=== PATIENT | male | born 1960 | race Caucasian/White ===

== ENCOUNTER 2020-01-20 16:48 | Emergency (ER) | payer BC, MEDICARE ==
--- NOTE | 2020-01-20 17:46 | ED.PDOC ---
History of Present Illness - General Chief Complaint: Upper Extremity Injury Stated Complaint: shoulder/neck and arm pain Time Seen by Provider: 01/20/20 17:23 Additional Information: Patient is a 59-year-old male who presents to the ED with chief complaint of bilateral shoulder pain, upper arm pain, and hand pain. Patient says his symptoms have been going on for 3 days and are slightly worse. He complains of subjective fever and chills at home. Patient has had similar symptoms in the past and told that he has rheumatoid arthritis and had been placed on steroids but is no longer on steroids. He had an episode of nausea and vomiting earlier today. Patient has a history of stroke and MT and indicates he is afraid to take any medications because of these 2 conditions. Patient is otherwise asymptomatic. - History of Present Illness Allergies/Adverse Reactions: Allergies Penicillins Adverse Reaction (Verified 01/20/20 17:07) Home Medications: Ambulatory Orders Acetaminophen W/ Codeine [Tylenol W/ CODEINE #3] 1 ea PO Q6H PRN #20 01/20/20 Ibuprofen [Motrin] 600 mg PO Q6H PRN #20 tab 01/20/20 Prednisone 40 mg PO DAILY #10 tab 01/20/20 Review of Systems - Review of Systems Constitutional: States: see HPI, chills, fever, weakness - Generalized EENTM: States: no symptoms reported Respiratory: States: no symptoms reported. Denies: cough, short of breath Cardiology: States: no symptoms reported. Denies: chest pain, palpitations Gastrointestinal/Abdominal: States: see HPI, nausea, vomiting. Denies: abdomin al pain Genitourinary: States: no symptoms reported. Denies: dysuria Musculoskeletal: States: see HPI, joint pain, joint swelling, muscle pain Skin: States: no symptoms reported. 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 Negative erythema, edema or ecchymosis. Elbow/Forearm Exam: normal inspection, non-tender Hand Exam: swelling - Diffuse mild swelling to fingers and MCP joints bilateral hands Neuro/Tendon: normal sensation, normal motor functions, normal tendon functions Mental Status: alert, oriented x 3 Skin Exam: normal color, warm/dry Progress - Progress Progress: Differential diagnosis includes but is not limited to rheumatoid arthritis, osteoarthritis, myalgia, rhabdomyolysis. 01/20/20 19:56 Patient is feeling much better at this time following analgesics and steroids. Patient's imaging is nonacute and patient indicates he has a history of rheumatoid arthritis. His inflammatory markers are elevated consistent with inflammatory arthritis flare. I have very low clinical concern for infection. Patient has never seen a area field worker and I will discharge with analgesics, steroids and referral to rheumatology. Vital signs stable, patient is NAD and looks clinically well and I believe is safe for discharge with outpatient follow-up. Follow-up instructions, discharge instructions and return to ED precautions discussed with patient. Patient voices understanding and willingness to comply with instructions. All laboratory and radiographic results have been discussed with the patient, and all questions answered. Patient is happy with plan. - EKG/XRAY/CT Comments: EKG: Normal sinus rhythm, rate 99, LAD, wide QRS, LBBB, ST and T wave godoy Departure - Departure Clinical Impression: Inflammatory arthritis Time of Disposition: 19:53 Disposition: Discharge to Home or Self Care Condition: Fair Departure Forms: ED Discharge - Pt. Copy, Patient Portal Self Enrollment Instructions: Rheumatoid Arthritis (DC) Activity: increase activity as tolerated Referrals: Gino Sampson III, MD [Primary Care Provider] - 1-5 Days F[facility] Gordon [Referring] - 1-5 Days Prescriptions: Acetaminophen W/ Codeine [Tylenol W/ CODEINE #3] 1 ea PO Q6H PRN #20 PRN Reason: Pain Ibuprofen [Motrin] 600 mg PO Q6H PRN #20 tab PRN Reason: Pain Prednisone 40 mg PO DAILY #10 tab Home Medications: Ambulatory Orders Acetaminophen W/ Codeine [Tylenol W/ CODEINE #3] 1 ea PO Q6H PRN #20 01/20/20 Ibuprofen [Motrin] 600 mg PO Q6H PRN #20 tab 01/20/20 Prednisone 40 mg PO DAILY #10 tab 01/20/20
[2020-01-20] MEDS: methylPREDNISolone SODIUM SUC 125 MG/2 ML VIAL IV ONE (18:10)
[2020-01-20] MEDS: ONDANSETRON INJ 4 MG/2 ML VIAL IV ONE (18:11)
[2020-01-20] MEDS: MORPHINE SULFATE INJ 10 MG/ML VIAL IV ONE (18:11)
[2020-01-20] MEDS: KETOROLAC TROMETHAMINE INJ 30 MG/ML VIAL IV ONE (18:12)
[2020-01-20] MEDS: SODIUM CHLORIDE 0.9% 1000ML 1,000 ML IVS ONE (18:12)
--- NOTE | 2020-01-20 18:17 | RAD ---
EXAM DESCRIPTION: Chest,1 View CLINICAL HISTORY:59 years Male, pain Comparison: None FINDINGS: No focal lung consolidation. No pleural effusion. No pneumothorax. Cardiac and mediastinal silhouette is unremarkable. No acute osseous abnormality. Soft tissues are unremarkable. IMPRESSION: No acute findings. No focal lung consolidation. Electronically signed by: Buck Gage MD 01/20/2020 6:16 PM CDT
--- NOTE | 2020-01-20 18:18 | RAD ---
EXAM DESCRIPTION: Shoulder,Left 2 Views CLINICAL HISTORY: 59 years Male, pain COMPARISON: None. FINDINGS: No fracture or dislocation. Soft tissues are unremarkable. IMPRESSION: No acute abnormality. Electronically signed by: Buck Gage MD 01/20/2020 6:16 PM CDT
--- NOTE | 2020-01-20 18:19 | RAD ---
EXAM DESCRIPTION: Shoulder,Right 2 Views CLINICAL HISTORY: 59 years Male, pain COMPARISON: None. FINDINGS: No fracture or dislocation. Mild acromioclavicular osteoarthrosis. Soft tissues are unremarkable. IMPRESSION: No acute abnormality. Electronically signed by: Buck Gage MD 01/20/2020 6:17 PM CDT
[2020-01-20 20:05] VITALS: BP 167/102; TEMP 99; O2SAT 97
== END 2020-01-20 20:03 | disposition home or self-care (01) ==
LOC: ER 16:48
DX: M06.4 Inflammatory polyarthropathy (principal); R11.2 Nausea with vomiting, unspecified; I10 Essential (primary) hypertension; J44.9 Chronic obstructive pulmonary disease, unspecified; Z86.73 Personal history of transient ischemic attack (TIA), and cerebral infarction without residual deficits
CPT/HCPCS: 36415; 71045; 73030; 80053; 83605; 85025; 85651; 86140; 93005; J1885; J2270; J2405; J2930; J7030